=== PATIENT | male | born 1955 | race Caucasian/White ===

== ENCOUNTER → 2017-08-15 | Day surgery (SDC) | payer OTHER ==
[2017-08-13 10:14] VITALS: BMI 29.4
[~2017-08-15] MED LIST: LACTATED RINGERS 1,000 ML IV SCH; LIDOCAINE 1% 20 ML VIAL (10MG/ML) FOR IV START INTRADERMA ONE; LIDOCAINE 1% INJ 10MG/ML (20 ML MDV) ONE; PROPOFOL 10 MG/ML 20 ML VIAL IV ONE
[2017-08-15 10:47] VITALS: TEMP 98.3
--- NOTE | 2017-08-15 11:14 | P.GSHP ---
History of Present Illness H&P Date: 08/15/17 Chief Complaint: Screening colonoscopy This a 62-year-old male referred from Dr. Rodriguez. Patient resents today for screening colonoscopy. He denies any significant GI complaints. Past Medical History Past Medical History: Hyperlipidemia, Hypertension Additional Past Medical History / Comment(s): hx MAGUI ING HERNIA. History of Any Multi-Drug Resistant Organisms: None Reported Past Surgical History: Hernia Repair, Tonsillectomy Additional Past Surgical History / Comment(s): MAGUI DETACHED RETINA SURG. LT ROTATOR CUFF REPAIR. Past Anesthesia/Blood Transfusion Reactions: No Reported Reaction Smoking Status: Former smoker - Past Family History Mother Additional Family Medical History / Comment(s): essential thrombosis Medications and Allergies Home Medications Medication Instructions Recorded Confirmed Type Aspirin 162.5 mg PO DAILY 05/24/14 08/13/17 History Atorvastatin [Lipitor] 20 mg PO DAILY 05/24/14 08/13/17 History Losartan/Hydrochlorothiazide 1 each PO DAILY 05/24/14 08/13/17 History [Losartan-Hctz 100-12.5 mg Tab] Allergies Allergy/AdvReac Type Severity Reaction Status Date / Time No Known Allergies Allergy Verified 08/13/17 10:09 Surgical - Exam Vital Signs Temp Pulse Resp BP Pulse Ox 98.3 F 69 16 152/93 96 08/15/17 10:31 08/15/17 10:31 08/15/17 10:31 08/15/17 10:31 08/15/17 10:31 - General well developed, no distress - Eyes PERRL - ENT normal pinna - Neck no masses - Respiratory normal expansion - Cardiovascular Rhythm: regular - Abdomen Abdomen: soft, non tender Assessment and Plan Assessment: We'll perform screening colonoscopy.
[2017-08-15 11:32] VITALS: RESP 18
--- NOTE | 2017-08-15 11:39 | P.OP ---
Date of Procedure: 08/15/17 Preoperative Diagnosis: Screening colonoscopy Postoperative Diagnosis: Normal colonoscopy Procedure(s) Performed: Normal colon Anesthesia: MAC Surgeon: Abelino Ricketts Pathology: none sent Condition: stable Disposition: PACU Description of Procedure: PROCEDURE: The patient was placed on the endoscopy table in the lateral position. Digital rectal examination was performed which revealed no abnormalities. The prostate was symmetrical without nodules. Flexible colonoscope was then placed in the patient's anus and passed throughout the entire colon. The ileocecal valve was visualized. The cecum, ascending, transverse, descending and sigmoid colon were normal. The rectum was normal as well. There were no masses, polyps or diverticula noted in the entire colon. SUMMARY OF FINDINGS: Normal colonoscopy.
[2017-08-15 11:51] VITALS: BP 115/74; PULSE 60
== END ==
LOC: ORWHC2ENDO 09:49
PROVIDERS: ATTEND Surgery
DX: Z12.11 Encounter for screening for malignant neoplasm of colon (principal); E78.5 Hyperlipidemia, unspecified; I10 Essential (primary) hypertension; Z87.891 Personal history of nicotine dependence; Z79.82 Long term (current) use of aspirin; Z79.899 Other long term (current) drug therapy
CPT/HCPCS: J2001; J2704; G0121

== ENCOUNTER → 2017-10-29 | Outpatient (CLI) | payer OTHER ==
--- NOTE | 2017-10-29 18:17 | XR ---
EXAMINATION TYPE: XR orbit detect foreign body DATE OF EXAM: 10/29/2017 COMPARISON: NONE HISTORY: MRI clearance. TECHNIQUE: 3 views FINDINGS: Orbital margins are intact. There is no sign of radiopaque foreign body. There is mucus ret ention cyst in the left maxillary sinus. IMPRESSION: No evidence of foreign body.
== END | disposition home or self-care (01) ==
LOC: RADXRMAIN 17:30
PROVIDERS: ATTEND Orthopaedic Surgery
DX: Z09 Encounter for follow-up examination after completed treatment for conditions other than malignant neoplasm (principal); Z87.821 Personal history of retained foreign body fully removed
CPT/HCPCS: 70030

== ENCOUNTER → 2017-10-30 | Outpatient (CLI) | payer OTHER ==
--- NOTE | 2017-10-30 07:05 | MR ---
EXAMINATION TYPE: MR shoulder LT wo con DATE OF EXAM: 10/30/2017 COMPARISON: Outside left shoulder x-ray September 30, 2017 HISTORY: Pain in left shoulder per order. History of prior surgery 11 years ago with pain for 4 month s per patient TECHNIQUE: Multiplanar, multisequence imaging of the left shoulder is performed without contrast. FINDINGS: Rotator Cuff: There is focal area of increased signal and defect near the humeral head attachment adam suring roughly 5 mm AP diameter parasagittal image 6 in the supraspinatus tendon. Infraspinatus tendo n is intact. Cleft and superior humeral head from prior surgery is noted. Subscapularis tendon is int act. Rotator cuff muscle bulk is preserved. Acromioclavicular Joint: Mild capsular hypertrophy and joint space loss. No significant spurring. Dis areli acromion morphology is unremarkable. Glenohumeral Joint: There is small to moderate glenohumeral joint effusion. There is joint space narr owing with tiny spur inferior medial aspect humeral head paracoronal image 14. Labrum: Increased signal and degenerative blunting superior labrum near paracoronal image 10 is prese nt. Biceps Tendon: The long head of biceps is in normal location within bicipital groove. Surrounding flu id signal is present. Intracapsular portion is not well identified. Bone marrow signal: No focal abnormal marrow signal is appreciated. Other: No additional significant abnormality is appreciated. IMPRESSION: 1. Focal tendinosis/partial tear of distal supraspinatus tendon at articular surface, no full-thickne ss retracted recurrent tear identified. 2. Mild to moderate AC and to slightly greater degree glenohumeral joint arthropathy as detailed abo ve. 3. Moderate bicipital tenosynovitis.
== END | disposition home or self-care (01) ==
LOC: RADMRIMAIN 06:10
PROVIDERS: ATTEND Orthopaedic Surgery
DX: S46.012A Strain of muscle(s) and tendon(s) of the rotator cuff of left shoulder, initial encounter (principal); M19.012 Primary osteoarthritis, left shoulder; M75.22 Bicipital tendinitis, left shoulder